=== PATIENT | female | born 1980 | race Caucasian/White ===

== ENCOUNTER 2017-03-07 19:36 | Emergency (ER) | payer OTHER ==
[2017-03-07 22:56] VITALS: BP 128/79
[2017-03-07 22:59] LABS: UA SPECIFIC GRAVITY <=1.005 (1.005-1.035); microscopic required? YES; urine erythrocyte NEGATIVE (NEGATIVE)
== END 2017-03-07 22:56 | disposition short-term general hospital (02) ==
LOC: ED 19:36
PROVIDERS: Specialist
DX: O23.43 Unspecified infection of urinary tract in pregnancy, third trimester (principal); Z3A.33 33 weeks gestation of pregnancy